=== PATIENT | male | born 1960 | race Caucasian/White ===

== ENCOUNTER 2016-11-14 20:13 | Emergency (ER) | payer MEDICARE, OTHER ==
[2016-11-14 20:21] VITALS: BP 129/83; PULSE 76; RESP 20; TEMP 98.9
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
== END 2016-11-14 20:58 | disposition home or self-care (01) ==
LOC: EC 20:13
DX: L03.116 Cellulitis of left lower limb (principal); E11.9 Type 2 diabetes mellitus without complications; K21.9 Gastro-esophageal reflux disease without esophagitis; E78.5 Hyperlipidemia, unspecified; I10 Essential (primary) hypertension; M19.90 Unspecified osteoarthritis, unspecified site; F32.9 Major depressive disorder, single episode, unspecified; Z87.891 Personal history of nicotine dependence; Z79.84 Long term (current) use of oral hypoglycemic drugs; Z79.891 Long term (current) use of opiate analgesic; Z79.899 Other long term (current) drug therapy
CPT/HCPCS: 99283

== ENCOUNTER → 2016-12-10 | Outpatient (CLI) | payer MEDICARE, OTHER ==
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
[2016-12-10 17:43] VITALS: BP 121/71; PULSE 76; RESP 15; TEMP 98; BMI 33.2
== END ==
LOC: BARWHC3 14:21
PROVIDERS: ATTEND Surgery
DX: R10.13 Epigastric pain (principal); Z98.84 Bariatric surgery status; Z87.891 Personal history of nicotine dependence
CPT/HCPCS: 99213

== ENCOUNTER → 2016-12-12 | Outpatient (CLI) | payer MEDICARE, OTHER ==
[2016-12-12 16:45] LABS: Blood Urea Nitrogen 13 mg/dL (9-20); Non-African American GFR(MDRD) >60 (>60 ml/min/1.73 sqM)
--- NOTE | 2016-12-12 18:19 | CT ---
EXAMINATION TYPE: CT abdomen pelvis w con DATE OF EXAM: 12/12/2016 COMPARISON: 05/15/2016 HISTORY: Generalized abdominal pain with nausea, vomiting and diarrhea. CT DLP: 1635.90 mGycm Automated exposure control for dose reduction was used. TECHNIQUE: Helical acquisition of images was performed from the lung bases through the pelvis. CONTRAST: Performed with Oral Contrast and with IV Contrast, patient injected with 100 mL of Omnipaque 300. FINDINGS: Lung bases are clear. There is no pleural effusion. Heart size is normal. Liver spleen pancreas gallbladder appear normal. Bile ducts are not dilated. There is no adrenal mass . There is a 3.5 cm cortical cyst on the lateral left kidney. There is a 2 cm cortical cyst on the up per pole right kidney. There is a 1.5 cm cyst posterior right kidney. There is previous surgery on th e anterior abdominal wall with multiple clips. There is irregular mild thickening of the anterior abd ominal wall. Bladder distends smoothly. There are few prostatic calcifications. There is no sign of a pelvic mass. There are some diverticula in the sigmoid colon. There is no sign of diverticulitis. Th ere are clips apparently from appendectomy. I see no intestinal wall thickening. There is no retroper itoneal adenopathy. Abdominal aorta shows mild atheromatous change. IMPRESSION: THERE ARE BILATERAL RENAL CORTICAL CYSTS ARE SLIGHTLY LARGER THAN OLD CT SCAN. NO SIGN OF ACUTE ABDOM EN AND PELVIS. PREVIOUS ANTERIOR ABDOMINAL WALL SURGERY AND MILD IRREGULAR THICKENING IS SIMILAR TO O LD EXAM. NO EVIDENCE OF A HERNIA. NO SIGN OF ACUTE ABDOMEN AND PELVIS.
== END | disposition home or self-care (01) ==
LOC: RADCTMAIN 16:10
PROVIDERS: ATTEND Surgery
DX: N28.1 Cyst of kidney, acquired (principal); Z98.890 Other specified postprocedural states
CPT/HCPCS: 82565; 84520; 74177; 36415; Q9967

== ENCOUNTER → 2017-01-07 | Outpatient (CLI) | payer MEDICARE, OTHER ==
[2017-01-07 14:16] VITALS: BP 148/79; PULSE 74; RESP 16; TEMP 98.1; BMI 33.5
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
== END | disposition home or self-care (01) ==
LOC: BARWHC3 13:54
PROVIDERS: ATTEND Surgery
DX: Z48.815 Encounter for surgical aftercare following surgery on the digestive system (principal); K21.9 Gastro-esophageal reflux disease without esophagitis; Z68.33 Body mass index [BMI] 33.0-33.9, adult; Z98.84 Bariatric surgery status; E11.9 Type 2 diabetes mellitus without complications; Z87.891 Personal history of nicotine dependence; R10.9 Unspecified abdominal pain
CPT/HCPCS: 99211

== ENCOUNTER 2017-01-23 09:04 | Day surgery (SDC) | payer MEDICARE, OTHER ==
[2017-01-21 09:15] VITALS: BMI 33.7
[~2017-01-23 09:04] MED LIST: LACTATED RINGERS 1,000 ML IV SCH; LIDOCAINE 1% 20 ML VIAL (10MG/ML) FOR IV START INTRADERMA PRN
[2017-01-23 10:58] VITALS: TEMP 97
[2017-01-23 11:08] LABS: Glucose,Whole Blood 90 mg/dL (75-99)
[2017-01-23] MEDS ORDERED: LIDOCAINE 1% INJ 10MG/ML (20 ML MDV) ONE (11:20)
[2017-01-23] MEDS ORDERED: PROPOFOL 10 MG/ML 20 ML VIAL IV ONE (11:20)
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
--- NOTE | 2017-01-23 11:40 | P.OP ---
Date of Procedure: 01/23/17 Preoperative Diagnosis: GERD Screening colonoscopy Postoperative Diagnosis: Antral gastritis Mild diverticular changes Procedure(s) Performed: EGD Colonoscopy Implants: Anesthesia: MAC Surgeon: Juaquin Bruner Pathology: other (Antrum) Condition: stable Disposition: PACU Indications for Procedure: Operative Findings: Description of Procedure: The patient's placed on the endoscopy table in the lateral position. He received IV sedation. The gastroscope placed oropharynx passed in the esophagus and stomach. Scope was then placed through the pylorus. The first second portion of duodenum appeared normal. Scope was then brought back and stomach and the antrum. Minimal inflamed and a biopsy was performed. The patient a previous gastric sleeve. There is no unsteady erosion or inflammation of the gastric sleeve. The gastric sleeve appeared to be moderately dilated. There appeared to be slightly enlarged gastric pouch at the superior portion of the stomach. The GE junction was at 40 cm, there was a small hiatal hernia. The distal esophagus appeared normal. The proximal esophagus appeared normal. Scope was withdrawn for patient. Next digital rectal exam was performed which revealed no abnormalities. Flexible colonoscope was then placed patient anus passed throughout the entire colon. The ileocecal valve was visualized. The cecum, ascending, transverse colon appeared normal. The descending; was mild diverticular changes. Scope was then brought back the rectum this appeared normal. Scope was withdrawn for patient.
[2017-01-23 12:44] VITALS: BP 114/63; PULSE 74; RESP 18
== END 2017-01-23 13:30 | disposition home or self-care (01) ==
LOC: ORWHC2ENDO 09:04
PROVIDERS: ATTEND Surgery
DX: Z12.11 Encounter for screening for malignant neoplasm of colon (principal); K29.50 Unspecified chronic gastritis without bleeding; K44.9 Diaphragmatic hernia without obstruction or gangrene; K57.30 Diverticulosis of large intestine without perforation or abscess without bleeding; E11.9 Type 2 diabetes mellitus without complications; H91.90 Unspecified hearing loss, unspecified ear; E78.5 Hyperlipidemia, unspecified; I10 Essential (primary) hypertension; M19.90 Unspecified osteoarthritis, unspecified site; G25.81 Restless legs syndrome; G47.33 Obstructive sleep apnea (adult) (pediatric); Z98.84 Bariatric surgery status; F41.9 Anxiety disorder, unspecified; F32.9 Major depressive disorder, single episode, unspecified; F43.10 Post-traumatic stress disorder, unspecified; F39 Unspecified mood [affective] disorder; Z79.899 Other long term (current) drug therapy; Z87.891 Personal history of nicotine dependence
CPT/HCPCS: 88305; 88342; 43239; J2001; J2704; G0121

== ENCOUNTER → 2017-02-25 | Outpatient (CLI) | payer MEDICARE, OTHER ==
[2017-02-25 15:02] VITALS: BP 130/80; PULSE 80; RESP 16; TEMP 98; BMI 33.3
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
== END | disposition home or self-care (01) ==
LOC: BARWHC3 13:57
PROVIDERS: ATTEND Surgery
DX: Z09 Encounter for follow-up examination after completed treatment for conditions other than malignant neoplasm (principal); E11.9 Type 2 diabetes mellitus without complications; K21.9 Gastro-esophageal reflux disease without esophagitis; E78.5 Hyperlipidemia, unspecified; I10 Essential (primary) hypertension; Z98.84 Bariatric surgery status; Z87.891 Personal history of nicotine dependence
CPT/HCPCS: 99211

== ENCOUNTER → 2018-05-12 | Outpatient (CLI) | payer MEDICARE, OTHER ==
[2018-05-12 15:29] VITALS: BP 144/76; PULSE 74; TEMP 97.9; BMI 33.4
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
== END ==
LOC: BARWHC3 14:23
PROVIDERS: ATTEND Surgery
DX: Z48.815 Encounter for surgical aftercare following surgery on the digestive system (principal); K21.9 Gastro-esophageal reflux disease without esophagitis; Z87.891 Personal history of nicotine dependence; Z98.84 Bariatric surgery status
CPT/HCPCS: 99211